=== PATIENT | male | born 1960 | race Caucasian/White ===

== ENCOUNTER 2017-09-01 14:46 | Emergency (ER) | payer OTHER ==
[~2017-09-01] VITALS: Ht 175.3 cm; Wt 77.0 kg
[2017-09-01 14:53] VITALS: BP 118/69; PULSE 66; RESP 15; TEMP 98.2; O2SAT 96
[2017-09-01] MEDS ORDERED: NAPR250T4 PO (15:49)
[2017-09-01] MEDS ORDERED: DIAZ5 PO (15:49)
--- NOTE | 2017-09-01 15:49 | PD ---
HPI Chief Complaint: ENT Complaint Time Seen by Provider: 15:36 Travel History International Travel<30 days: No Contact w/Intl Traveler<30days: No Traveled to known affect area: No History of Present Illness HPI 57-year-old male complains of pain in the region of the left jaw. It's worse at night and in the mornings. Aleve has been somewhat helpful. He also notes a vague foreign body sensation in the left ear. The symptoms seemed to have begun as left ear pain which resolved with migration of the pain into the jaw and then the vague foreign body sensation in the left ear developed. No fever. No otorrhea. No dentalgia. The patient reports undergoing lower left wisdom tooth removal and subsequent removal of the second molar on the affected side. No trauma. PFSH Past Medical History Medical History: Denies Significant Hx Diminished Hearing: No Immunizations Current: Yes Tetanus Vaccination: < 5 Years Influenza Vaccination: No Past Surgical History Other Surgery: Yes (CYST ON BACK) Social History Alcohol Use: No Tobacco Use: No Substance Use: No Allergies-Medications (Allergen,Severity, Reaction): Coded Allergies: No Known Allergies (Unverified Adverse Reaction, Unknown, 09/01/17) Reported Meds & Prescriptions Reported Meds & Active Scripts Active Debrox Otic Drops (Carbamide Peroxide Otic Drops) 6.5% Soln 5-10 Drop LEFT EAR BID PRN 5 Days up to 4 days. Valium (Diazepam) 5 Mg Tab 5 Mg PO HS PRN 7 Days Naproxen 250 Mg Tab 250 Mg PO BID 10 Days Review of Systems General / Constitutional: No: Fever HENT: Positive: Dental Difficulties Physical Exam Narrative GENERAL: 57-year-old male well-nourished well-developed pleasant ENT: There is minimal cerumen in the region of the left external auditory canal. The bony landmarks are clearly visualized on the left side. It is no mastoid tenderness. No tenderness about the external ear on the left side. The right middle ear appears normal with clear visualization of bony landmarks and no effusion. There is minimal tenderness along the muscles of mastication anteriorly on the left side especially with opening and closing of the mouth. There is no crepitus on exam. There is no tender dentition. SKIN: Warm and dry. HEAD: Normocephalic. EYES: No scleral icterus. No injection or drainage. NECK: Supple, trachea midline. No JVD or lymphadenopathy. CARDIOVASCULAR: Regular rate and rhythm without murmurs, gallops, or rubs. RESPIRATORY: Breath sounds equal bilaterally. No accessory muscle use. GASTROINTESTINAL: Abdomen soft, non-tender, nondistended. MUSCULOSKELETAL: No cyanosis, or edema. Data Data Last Documented VS Vital Signs Date Time Temp Pulse Resp B/P (MAP) Pulse Ox O2 Delivery O2 Flow Rate FiO2 09/01/17 14:53 98.2 66 15 118/69 (85) 96 VS reviewed Orders Orders Ed Discharge Order (09/01/17 15:39) MDM Medical Decision Making Medical Screen Exam Complete: Yes Emergency Medical Condition: Yes Medical Record Reviewed: Yes Differential Diagnosis TMJ, abscess, acute otitis media, salivary duct stones Narrative Course And there is no otitis media. There is no dental abscess or dental carry. The presentation could be in keeping with a temporomandibular joint pain syndrome. Scripts as below. Follow-up with dental. Salivary duct stone is considered much less likely. There is trace amount of cerumen in the left external canal which will respond well to Debrox. Diagnosis Primary Impression: TMJ (temporomandibular joint syndrome) Referrals: Dentist 2 days Med/Other Pt SpecificInfo: Prescription(s) given Scripts Carbamide Peroxide Otic Drops (Debrox Otic Drops) 6.5% Soln 5-10 DROP LEFT EAR BID Y for Ear Wax Removal for 5 Days, #1 BOTTLE 0 Refills up to 4 days. Prov: Ten Maurer MD 09/01/17 Diazepam (Valium) 5 Mg Tab 5 MG PO HS Y for PAIN SCALE 4 TO 10 for 7 Days, TAB 0 Refills Prov: Ten Maurer MD 09/01/17 Naproxen (Naproxen) 250 Mg Tab 250 MG PO BID for 10 Days, #20 TAB 0 Refills Prov: Ten Maurer MD 09/01/17 Disposition: 01 DISCHARGE HOME Condition: Stable Ten Maurer MD Sep 01, 2017 15:49
[2017-09-01] MEDS ORDERED: CARB6.5S5 LEFT EAR (15:54)
== END 2017-09-01 15:55 | disposition home or self-care (01) ==
LOC: PHEFT 14:46
DX: M26.609 Unspecified temporomandibular joint disorder, unspecified side (principal)
CPT/HCPCS: 99284